=== PATIENT | female | born 1950 | race Caucasian/White ===

== ENCOUNTER → 2016-12-30 | Outpatient (CLI) | payer MEDICARE, OTHER ==
--- NOTE | 2016-12-30 11:43 | REP ---
BILATERAL MAMMOGRAM: Bilateral mammography performed in the [facility] and CC projections. COMPARISON: 05/28/2015 as well as other prior exams. Mild retroareolar fibroglandular tissue is again noted. A stable nodule is seen in the upper outer quadrant of the right breast. There is a new 5 mm nodule in the medial left breast. Recommend spot compression views and ultrasound to further evaluate. IMPRESSION: ACR 0 incomplete. 5 mm rounded nodule medial left breast. Recommend spot compression views and ultrasound to further evaluate. BI-RADS/ACR category 0 mammogram, incomplete. Additional imaging and/or prior images are needed before a final assessment can be assigned. This mammogram was interpreted with the aid of an FDA-approved computer-aided detection system. A. Negative x-ray reports should not delay biopsy if a dominant or clinically suspicious mass is present. B. Four to eight percent of cancers are not identified by x-ray. C. Adenosis and dense breasts may obscure an underlying neoplasm. The patient states she/he had a clinical breast exam in December 2016. The patient letter being requested is M0
== END ==
LOC: M WHC 08:30
PROVIDERS: ATTEND Obstetrics & Gynecology
DX: Z12.31 Encounter for screening mammogram for malignant neoplasm of breast (principal)

== ENCOUNTER → 2017-01-02 | Outpatient (CLI) | payer MEDICARE, OTHER ==
--- NOTE | 2017-01-02 15:23 | REP ---
DIAGNOSTIC MAMMOGRAM LEFT BREAST WITH LEFT BREAST ULTRASOUND: Diagnostic mammogram of the left breast performed with multiple spot compression views obtained and correlated with the recent mammogram of 12/30/2016. The spot compression views demonstrate a smoothly marginated well-defined nodule in the medial left breast measuring 5 mm in diameter. Real-time sonographic evaluation of the medial left breast demonstrates a cyst measuring 5 mm in diameter, which appears benign. IMPRESSION: ACR 2 benign. The nodule in the medial left breast corresponds to a cyst by ultrasound and is benign. Recommend followup routine bilateral mammogram in 1 year. BI-RADS/ACR category 2 mammogram. Benign finding(s). Routine annual screening mammography (for women over age 40). Patient letter M1. Signed by Panchito Shaffer MD 01/02/2017 08:04 P
== END ==
LOC: M RAD 12:38
PROVIDERS: ATTEND Obstetrics & Gynecology
DX: N63 Unspecified lump in breast (principal)
CPT/HCPCS: 76642; G0206